=== PATIENT | female | born 1940 | race Native Hawaiian/Other Pacific Islander ===

== ENCOUNTER 2023-01-26 12:01 | Inpatient (IN) | payer OTHER, BC | END 2023-01-30 08:57 | disposition still patient (30) | LOC: PAVB 12:01 | PROVIDERS: ADMIT Family Medicine; ATTEND Family Medicine | DX: J96.00 Acute respiratory failure, unspecified whether with hypoxia or hypercapnia (principal); M62.81 Muscle weakness (generalized); R26.2 Difficulty in walking, not elsewhere classified; R26.81 Unsteadiness on feet; Z74.1 Need for assistance with personal care; R41.841 Cognitive communication deficit | CPT/HCPCS: 87081 ==

== ENCOUNTER 2023-01-30 16:34 | Inpatient (IN) | payer OTHER, BC ==
[2023-01-31 06:11] LABS: PLATELET COUNT 140 K/uL (152-353)
[2023-01-31 13:27] LABS: PARTIAL THROMBOPLASTIN TIME 35.1 SECONDS (23.9-36.7)
[2023-02-01] MEDS ORDERED: ALLO100T22 PO (17:18)
[2023-02-01] MEDS ORDERED: LIPITOR40 MG PO (17:19)
[2023-02-01] MEDS ORDERED: OXYB5TAB64 PO (17:21)
[2023-02-01] MEDS ORDERED: GABA100C2 PO (17:22)
[2023-02-01] MEDS ORDERED: ESCI10TA PO (17:23)
[2023-02-01] MEDS ORDERED: PANTOPRAZOLE 40MG TA PO (17:25)
[2023-02-01] MEDS ORDERED: APIX1TAB PO (17:26)
[2023-02-01] MEDS ORDERED: FURO80TA4 PO (17:27)
[2023-02-01] MEDS ORDERED: METO-837 PO (17:29)
== END 2023-02-01 09:00 | disposition short-term general hospital (02) ==
LOC: PAVB 16:34
PROVIDERS: Family Medicine; ADMIT Internal Medicine; ATTEND Internal Medicine
DX: J96.00 Acute respiratory failure, unspecified whether with hypoxia or hypercapnia (principal); M62.81 Muscle weakness (generalized); R26.2 Difficulty in walking, not elsewhere classified; R26.81 Unsteadiness on feet; Z74.1 Need for assistance with personal care; R41.841 Cognitive communication deficit
CPT/HCPCS: 80076; 85027; 85610; 85730

== ENCOUNTER 2023-02-01 12:50 | Inpatient (IN) | payer OTHER, BC ==
[~2023-02-01] VITALS: Ht 154.9 cm; Wt 127.6 kg
[2023-02-01 12:50] VITALS: BP 121/85; TEMP 97.2
[2023-02-01 13:58] LABS: POTASSIUM 2.9 mmol/L (3.6-5.2)
[2023-02-01 14:01] LABS: PLATELET COUNT 176 K/uL (152-353)
[2023-02-01 14:45] VITALS: BP 119/92
[2023-02-01 15:20] VITALS: BP 127/94
[2023-02-01 15:58] VITALS: BP 144/90; TEMP 97.4; Ht 154.9 cm; Wt 127.6 kg
[2023-02-01] MEDS ORDERED: ALLO100T22 PO (17:18)
[2023-02-01] MEDS ORDERED: LIPITOR40 MG PO (17:19)
[2023-02-01] MEDS ORDERED: OXYB5TAB64 PO (17:21)
[2023-02-01] MEDS ORDERED: GABA100C2 PO (17:22)
[2023-02-01] MEDS ORDERED: ESCI10TA PO (17:23)
[2023-02-01] MEDS ORDERED: PANTOPRAZOLE 40MG TA PO (17:25)
[2023-02-01] MEDS ORDERED: APIX1TAB PO (17:26)
[2023-02-01] MEDS ORDERED: FURO80TA4 PO (17:27)
[2023-02-01] MEDS ORDERED: METO-837 PO (17:29)
[2023-02-01 20:00] VITALS: BP 149/85; TEMP 97.4
[2023-02-02] VITALS: BP 113/85; TEMP 97.4
[2023-02-02 05:37] LABS: PLATELET COUNT 160 K/uL (152-353)
[2023-02-02 05:41] LABS: POTASSIUM 3.6 mmol/L (3.6-5.2)
[2023-02-02 08:00] VITALS: BP 99/69; TEMP 98.2
[2023-02-02 08:50] VITALS: BP 99/69; TEMP 98.2
[2023-02-02 12:00] VITALS: BP 103/64; TEMP 98.5
[2023-02-02 16:00] VITALS: BP 135/67; TEMP 98.3
[2023-02-02 20:00] VITALS: BP 121/80; TEMP 97.6
[2023-02-03] VITALS (8 sets, daily range): BP systolic 94–145; BP diastolic 48–86; TEMP 97.4–98.3
[2023-02-03 04:27] LABS: POTASSIUM 4.8 mmol/L (3.6-5.2)
[2023-02-03 04:35] LABS: PLATELET COUNT 153 K/uL (152-353)
[2023-02-04 03:39] VITALS: BP 116/46; TEMP 97.5
[2023-02-04 06:43] LABS: PLATELET COUNT 160 K/uL (152-353)
[2023-02-04 06:52] LABS: POTASSIUM 5.7 mmol/L (3.6-5.2)
== END 2023-02-04 07:42 | disposition short-term general hospital (02) | DRG 193 ==
LOC: ED 12:50 → MED/SURG 14:40
PROVIDERS: Family Medicine; ADMIT Nurse Practitioner Family; ATTEND Internal Medicine Endocrinology, Diabetes & Metabolism
DX: J18.9 Pneumonia, unspecified organism (principal); J96.21 Acute and chronic respiratory failure with hypoxia; Z68.43 Body mass index [BMI] 50.0-59.9, adult; I50.9 Heart failure, unspecified; K21.9 Gastro-esophageal reflux disease without esophagitis; E66.01 Morbid (severe) obesity due to excess calories; I11.0 Hypertensive heart disease with heart failure
CPT/HCPCS: 36415; 36600; 80048; 80053; 82805; 82948; 83605; 83735; 83880; 84484; 85027; 87040; 93005; 94664; 94760; 96365; 96367; 96375; 96376; 99221; 99284; G0378; J0456; J0696; J1940; J2270; J3490; J7040; P9047